=== PATIENT | male | born 1960 | race Caucasian/White ===

== ENCOUNTER 2017-03-04 14:32 | Emergency (ER) | payer OTHER ==
[~2017-03-04] VITALS: Ht 187.9 cm; Wt 78.5 kg
[2017-03-04] MEDS ORDERED: ASPIRIN81 M1 PO (14:40)
[2017-03-04] MEDS ORDERED: CYMBALTA30 MG PO (14:40)
[2017-03-04] MEDS ORDERED: VITAMIN B121000 MC1 PO (14:40)
[2017-03-05 07:07] LABS: HEPATITIS B SURFACE AB 006395 Reactive (.)
[2017-03-05 08:11] LABS: HIV 1+2 AB + HIV1 P24 AG Non Reactive (Non Reactive)
== END 2017-03-04 15:05 | disposition home or self-care (01) ==
LOC: ED 14:32
PROVIDERS: Physician Assistant
DX: S61.432A Puncture wound without foreign body of left hand, initial encounter (principal); Z79.899 Other long term (current) drug therapy; Z79.82 Long term (current) use of aspirin; W22.8XXA Striking against or struck by other objects, initial encounter; Y93.89 Activity, other specified; Y92.89 Other specified places as the place of occurrence of the external cause; Y99.9 Unspecified external cause status